=== PATIENT | female | born 1990 | race African-American/Black ===

== ENCOUNTER 2016-09-06 09:58 | Emergency (ER) | payer SELFPAY ==
[~2016-09-06] VITALS: Ht 154.9 cm; Wt 68.0 kg
[2016-09-06 10:05] VITALS: BP 147/97
--- NOTE | 2016-09-06 10:08 | NUR ---
PT AMBULATED TO BED 8.
--- NOTE | 2016-09-06 10:27 | NUR ---
Patient being evaluated by physician at bedside.
--- NOTE | 2016-09-06 10:44 | NUR ---
Lab at bedside.
--- NOTE | 2016-09-06 11:00 | NUR ---
26/F presents to ED for evaluation of blood nose x 1 day. Patient states "I woke up yesterday with a blood nose all over the place. When I went to work, I kept bleeding and it was coming out of my mouth too." Patient is AXO4, no active bleeding at this time. VSS.
[2016-09-06 11:09] VITALS: BP 148/92
[2016-09-06 11:16] LABS: HEMATOCRIT 40.6 % (36-48); HEMOGLOBIN 12.7 g/dL (12.0-16.0)
== END 2016-09-06 11:09 | disposition home or self-care (01) ==
LOC: MED 09:58
DX: R04.0 Epistaxis (principal); R42 Dizziness and giddiness; I10 Essential (primary) hypertension
CPT/HCPCS: 36415; 85018; 93005; 99285

== ENCOUNTER 2016-09-19 17:09 | Emergency (ER) | payer SELFPAY ==
[~2016-09-19] VITALS: Ht 154.9 cm; Wt 66.7 kg
[2016-09-19 17:59] VITALS: BP 144/93
--- NOTE | 2016-09-19 18:00 | NUR ---
PT TO OVERFLOW.
--- NOTE | 2016-09-19 18:03 | NUR ---
PATIENT PRESENTS TO ED FOR RECHECK OF EPITAXIS . PT STATES SHE HAS NOT HAD ANY FURTHER EPISODES OF EPITAXIS . DENIES N/V/D; SKIN IS PINK/WARM/DRY; AAOX4 WITH EVEN AND STEADY GAIT; LUNGS CLEAR BL; HR EVEN AND REGULAR; PT DENIES ANY FEVER, CP, SOB, OR COUGH AT THIS TIME; PATIENT STATES PAIN OF 0/10 AT THIS TIME; VSS. ER MD MADE AWARE OF PT STATUS.
[2016-09-19 18:19] VITALS: BP 148/71
--- NOTE | 2016-09-19 18:19 | NUR ---
Patient discharged with v/s stable. Written and verbal after care instructions given and explained. Patient verbalized understanding. Ambulatory with steady gait. All questions addressed prior to discharge. Advised to follow up with PMD.
== END 2016-09-19 18:19 | disposition home or self-care (01) ==
LOC: MED 17:09
DX: Z00.00 Encounter for general adult medical examination without abnormal findings (principal); I10 Essential (primary) hypertension